=== PATIENT | male | born 1965 | race African-American/Black ===

== ENCOUNTER 2024-09-10 22:24 | Emergency (ER) | payer OTHER | END 2024-09-10 23:30 | disposition home or self-care (01) | LOC: CSHERS 22:24 | DX: S00.03XA Contusion of scalp, initial encounter (principal); S39.012A Strain of muscle, fascia and tendon of lower back, initial encounter; F17.200 Nicotine dependence, unspecified, uncomplicated; W01.198A Fall on same level from slipping, tripping and stumbling with subsequent striking against other object, initial encounter | CPT/HCPCS: 70450; 72125 ==